=== PATIENT | male | born 1980 | race Caucasian/White ===

== ENCOUNTER 2020-03-21 08:37 | Emergency (ER) | payer MEDICARE, OTHER ==
[~2020-03-21] VITALS: Ht 172.7 cm; Wt 88.1 kg
[2020-03-21 08:44] VITALS: BP 138/95
[2020-03-21] MEDS ORDERED: FLUORESCEIN OPHTHALMIC 1 MG STRIP ONE (09:00)
[2020-03-21] MEDS ORDERED: PROPARACAINE OPHTH 0.5%, 15ML ONE ×2 (09:01→10:18)
--- NOTE | 2020-03-21 09:12 | NUR ---
RIGHT EYE REDNESS AND TEARY. PT ANXIOUS. AWAITING EXAM
[2020-03-21] MEDS ORDERED: PROPARACAINE OPHTH 0.5%, 15ML EACHEYE ONE (09:30)
[2020-03-21] MEDS ORDERED: FLUORESCEIN OPHTHALMIC 1 MG STRIP EACHEYE ONE (09:30)
--- NOTE | 2020-03-21 09:42 | NUR ---
eye exam completed by pa
[2020-03-21] MEDS ORDERED: DIPH,PERTUSS(ACELL),TET VAC/PF 0.5 ML IM-VACC ONE ×2 (09:43→10:00)
--- NOTE | 2020-03-21 10:31 | NUR ---
AFTER MD MORATAYA PT GIVEN ADDITIONAL DROPS OF PROPARICAINE. THE PROPARICAINE INITIALLY GIVEN BY PROVIDER HAD BEEN THROWN AWAY SO ANOTHER BOTTLE REMOVED.
== END 2020-03-21 10:34 | disposition home or self-care (01) ==
LOC: MERGE 08:37 → ED 09:38
DX: S05.01XA Injury of conjunctiva and corneal abrasion without foreign body, right eye, initial encounter (principal); R94.31 Abnormal electrocardiogram [ECG] [EKG]; X58.XXXA Exposure to other specified factors, initial encounter; Y93.89 Activity, other specified; Y92.89 Other specified places as the place of occurrence of the external cause; Y99.8 Other external cause status
CPT/HCPCS: 90471; 90715; 93005; 99283

== ENCOUNTER 2021-06-28 03:43 | Emergency (ER) | payer OTHER ==
[~2021-06-28] VITALS: Ht 172.7 cm; Wt 86.0 kg
--- NOTE | 2021-06-28 05:05 | NUR ---
PTS CAME OUT OF ROOM AND IS MAD SAYING HER IS READY TO LEAVE, BECAUSE NOBODY HAS GONE TO SEE THEM YET, AND THE SAYS THEY'VE BEEN HERE FOR OVER 2 HOURS AND THEY HAVEN'T BEEN SEEN. PTS WAS RE ORIENTED TO THE TRUE TIME OF 1:20 MINUTES.
--- NOTE | 2021-06-28 05:07 | NUR ---
DR ADEN TO THE ROOM TO RAFIA FOURNIER.
[2021-06-28] MEDS ORDERED: D5%-0.45% NACL 1,000 ML IV ONE (05:14)
[2021-06-28] MEDS ORDERED: ONDANSETRON 2MG/ML, 2ML ONE (05:25)
[2021-06-28] MEDS ORDERED: HYDROmorphone 2 MG/ML, 1ML ONE (05:25)
[2021-06-28] MEDS ORDERED: ONDANSETRON 2MG/ML, 2ML IVPush ONE (05:30)
[2021-06-28] MEDS ORDERED: HYDROmorphone 1 MG/ML, 1ML INJ IV ONE ×2 (05:30→08:30)
[2021-06-28] MEDS ORDERED: SODIUM CHLORIDE FLUSH 10ML SYR IVF ONE (05:30)
--- NOTE | 2021-06-28 05:45 | NUR ---
ORDERS RECEIVED AND PIV STARTED TO PTS LEFT HAND X1 ATTEMPT, 18G CATH, AND BLOOD DRAWN AND SENT TO LAB FOR SAMPLE. UA COLLECTED AND SENT TO LAB WELL. PIV FLUIDS STARTED PER MD ORDER, SEE EMAR. PT MEDICATED PER MD ORDER, SEE EMAR, AND PT VERBALIZED PAIN RELIEF, FROM A 17/10 TO A 5/10 AT THIS TIME. PT STATES HE DOESN'T KNOW WHY PEOPLE COME TO TAKE THAT DRUG RECREATIONALLY SINCE THE PAIN IS GONE BUT HE FEELS SUPER WEIRD. PT PLACED ON O2 SAT PROBE AND CR MONITOR. PT CALM AND COOPERATIVE AND WAS THANKFUL AFTER PROCEDURES.
[2021-06-28 05:58] LABS: BASOPHILS % (AUTO) 0 % (0-1); EOSINOPHILS % (AUTO) 2 % (1-7); LYMPHOCYTES % (AUTO) 23 % (22-44); MEAN CORPUSCULAR HEMOGLOBIN 29.3 pg (27.5-34.5); MEAN CORPUSCULAR HGB CONC 34.4 g/dL (33.2-36.2); MEAN PLATELET VOLUME 7.9 fL (7.4-10.4); MONOCYTES % (AUTO) 20 % (2-9); NEUTROPHILS % (AUTO) 54 % (42-75); PLATELET COUNT 217 x10^3/uL (130-400); RED BLOOD COUNT 5.26 x10^6/uL (4.38-5.82); RED CELL DISTRIBUTION WIDTH 13.7 % (9.4-14.8)
[2021-06-28 06:09] LABS: ALANINE AMINOTRANSFERASE 30 U/L (12-78); ALBUMIN 3.6 g/dL (3.4-5.0); ANION GAP 9 mmol/L (5-15); CALCIUM 9.1 mg/dL (8.5-10.1); CHLORIDE 105 mmol/L (98-107); CREATININE 0.78 mg/dL (0.7-1.3)
[2021-06-28 06:11] LABS: ALKALINE PHOSPHATASE 74 U/L (45-117); BILIRUBIN,TOTAL 1.3 mg/dL (0.2-1.0); TOTAL PROTEIN 7.9 g/dL (6.4-8.2)
[2021-06-28] MEDS ORDERED: OMNIPAQUE 350 MG/ML, 100ML BOTTLE ONE (06:11)
[2021-06-28 06:16] LABS: MICROSCOPIC INDICATED
--- NOTE | 2021-06-28 06:30 | NUR ---
PT TAKEN TO CT SCAN. NO ACUTE DISTRESS, AND BROUGHT BACK TO ROOM. WAITING ON RESULTS.
--- NOTE | 2021-06-28 06:45 | NUR ---
REPORT AND CARE GIVEN TO RAULITO JAIME.
[2021-06-28] MEDS ORDERED: METRONIDAZOLE PMX 500MG/100ML 100 ML ONE (07:43)
[2021-06-28 07:50] VITALS: BP 125/88
[2021-06-28] MEDS ORDERED: METRONIDAZOLE PMX 500MG/100ML 100 ML IV ONE (08:00)
--- NOTE | 2021-06-28 08:08 | NUR ---
SEEN BY MD ADEN. ABX INFUSING. PT RESTING, CALL LIGHT IN [facility]
[2021-06-28] MEDS ORDERED: SODIUM CHLORIDE 0.9% 1,000ML IVBOLUS ONE (08:30)
[2021-06-28] MEDS ORDERED: CEFOTETAN PMX 1GM/50ML 50 ML IVPB ONE (09:00)
--- NOTE | 2021-06-28 09:27 | NUR ---
Patient given discharge instructions and they have confirmed that they understand the instructions. Patient ambulatory with steady gait.
== END 2021-06-28 09:52 | disposition home or self-care (01) ==
LOC: ED 05:23
DX: R10.12 Left upper quadrant pain (principal); E86.0 Dehydration; R19.7 Diarrhea, unspecified; R11.2 Nausea with vomiting, unspecified
CPT/HCPCS: 36415; 74177; 80053; 81001; 83605; 83690; 85025; 96361; 96365; 96366; 96368; 96375; 99285; J1170; J2405; J7030; Q9967